=== PATIENT | male | born 1965 | race Caucasian/White ===

== ENCOUNTER 2020-06-19 01:23 | Observation (INO) | payer OTHER ==
[~2020-06-19] VITALS: Ht 177.8 cm; Wt 92.5 kg
[2020-06-19 01:31] VITALS: Ht 177.8 cm; Wt 92.5 kg
--- NOTE | 2020-06-19 01:34 | NUR ---
PT BIB [facility] WITH [facility]. PER MELT SUPERINTENDANT, PT CALLED 911 WITH REPORTS OF HAVING RADIATING CHEST PAIN. MELT SUPERINTENDANT STATES PT HAS HISTORY OF SENT PLACEMENT AND WAS SEEN LAST MONTH FOR "ETOH OD". PER MELT SUPERINTENDANT, PT WAS FOUND DRINKING MIKES HARD LEOMONADE ON ARRIVAL, AFTER EVALUATION WAS ADMINISTERED ASA AND NITRO. PT IS AWAKE A/O X4 SPEAKING CLEAR FULL SENTENCES. NO ACUTE DISTRESS NOTED. BREATHING EVEN AND UNLABORED. PT PLACED ON CM AND O2 MONITOR. SAFETY MEASURES IN PLACE. AWAITING MD NERI FOR MSE, WILL CONTINUE TO MONITOR.
--- NOTE | 2020-06-19 01:36 | NUR ---
MD NERI AT BEDSIDE FOR MSE. URSULA EMT AT [facility] FOR EKG. WILL CONTINUE TO MONITOR.
[2020-06-19 02:24] LABS: CALCIUM 7.9 mg/dL (8.5-10.1); CARBON DIOXIDE 26.7 mmol/L (21-32); CHLORIDE SERUM 102 mmol/L (98-107); CREATININE SERUM 0.7 mg/dL (0.7-1.3); GFR1 > 60 mL/min; GLUCOSE SERUM 104 mg/dL (74-106); POTASSIUM SERUM 3.7 mmol/L (3.5-5.1); SODIUM SERUM 138 mmol/L (136-145)
[2020-06-19 02:29] LABS: ALBUMIN 3.4 g/dL (3.4-5.0); ALKALINE PHOSPHATASE 56 U/L (46-116); ALT/SGPT 56 U/L (16-63); AST/SGOT 34 U/L (15-37); BILIRUBIN TOTAL 0.42 mg/dL (0.20-1.00); TOTAL PROTEIN, SERUM 6.7 g/dL (6.4-8.2)
[2020-06-19 02:34] LABS: BASOPHIL % 0.9 % (0-2); PLATELET COUNT 233 x10^3mcL (130-400); RED CELL DISTRIBUTION WIDTH 16.9 % (11.5-14.5)
--- NOTE | 2020-06-19 03:20 | NUR ---
PT REFUSED FENTANYL ORDERED BY MD NERI, MD NERI MADE AWARE. WASTED MEDICATION IN MED ROOM IN APPROPRIATE MED WASTE CONTAINER WITH MYSELF AND RAJESH GRANT.
--- NOTE | 2020-06-19 03:28 | NUR ---
MD NERI AT BEDSIDE DISCUSSING RESULTS AND POC WITH PT AT THIS TIME.
--- NOTE | 2020-06-19 03:52 | NUR ---
PT AWAKE IN GURNEY, SPEAKING CLEAR FULL SENTENCES. PT A/O X4, ON PHONE. NO ACUTE DISTRESS NOTED. BREATHING EVEN AND UNLABORED. CM AND O2 MONITOR IN PLACE. PT DENIES PAIN AT THIS TIME. SAFETY MEASURES IN PLACE. CALL LIGHT WITHIN REACH. WILL CONTINUE TO MONITOR.
--- NOTE | 2020-06-19 04:10 | NUR ---
PT NOTED WITH CM OFF. ENTERED ROOM AND INFORMED PT I NEEDED TO LIFT GOWN UP TO REINFORCE LEADS. PT STATED "WHY DO YOU NEED TO LIFT THAT, ARE YOU CHECKING FOR ABDOMINAL PAIN?" TO WHICH I RE-INFORMED HIM THAT THE LEADS TO HIS CM WERE OFF AND I NEEDED TO REINFORCE THEM AND CHECK THEM. PT THEN STARTED TO BUNCH UP HIS GOWN NEAR HIS LEFT LOWER ABD AND SAID "DONT LIFT THIS, DONT LOOK HERE". I ASKED HIM WHY AND HE SAID "DONT WORRY, DONT LIFT IT". I LOOKED TO HIS LEFT LOWER ABD AND NOTED A CLEAR BOTTLE STICKING OUT OF HIS PANTS. I ASKED HIM WHAT IT WAS TO WHICH HE STATED "DONT WORRY, YOU DIDNT SEE ANYTHING." I INFORMED HIM THAT ALCOHOL WAS NOT ALLOWED IN FACILITY. PT STATED "I DONT HAVE ANYTHING, I DONT KNOW WHAT YOURE TALKING ABOUT". I ASKED HIM AGAIN NICELY TO HAND BOTTLE OVER, PT STATED " I DONT HAVE ANYTHING". CHARGE NURSE INFORMED AND SECURITY CALLED.
--- NOTE | 2020-06-19 04:19 | NUR ---
MYSELF AND RAJESH GRANT AT BEDSIDE AND ASKED PT TO HAND OVER BOTTLE SINCE HE WAS BEING ADMITTED, INFORMED PT THAT SECURITY WOULD HOLD IT UNTIL HE IS DISHCARGED. PT THEN ASKED US TO LEAVE ROOM SO HE COULD GET IT, PT THEN CALLED US BACK INTO THE ROOM AND HANDED OVER BOTTLE OF VODKA. BOTTLE OF VODKA HANDED OVER TO SECURITY WITH PERSONAL LABEL ATTATCHED TO IT.
--- NOTE | 2020-06-19 04:37 | NUR ---
UPON GATHERING BELONGINGS, PT NOTED WITH POCKET BLADE. SECURITY CALLED. POCKET BLADE LABELED WITH PT INFORMATION AND HANDED OVER TO SECURITY. PT MADE AWARE AND VERBALIZED UNDERSTANDING. SECURITY EXPLAINED TO PT THAT UPON DISCHARGE, HE IS TO STOP BY OFFICE TO AGR[employer] SYSTEMS SPECIALIST PERSONAL BELONGINGS. PT AGREED AND VEBRALIZED UNDERSTANDING.
[2020-06-19 04:48] LABS: CHOLESTEROL/HDL RATIO 1.6
--- NOTE | 2020-06-19 04:50 | NUR ---
REPORT CALLED TO CAROLINA GRANT AT EXT [phone]
[2020-06-19 04:53] LABS: AMPHETAMINE QUAL UR POSITIVE (See below)
--- NOTE | 2020-06-19 05:00 | NUR ---
RECEIEVED PT FROM ED VIA BED, PT CAME IN DUE TO CHEST PAIN. PT STATES PAIN IS 3/10 AT THIS TIME. DESCRIBES PAIN ACHING. STATES PAIN IS TOLERABLE AT THIS TIME. TELE#3 [address] SR. PALPABLE PULSES TO ALL EXTREMETIES. NO EDEMA NOTED. LUNG SOUNDS CTA, BREATHING EVEN AND UNLABORED ON RA. NO SOB NOTED. ABD SOFT AND NONDISTENDED. ACTIVE BS X4 QUAD. DENIES N/V/D. VOIDS FREELY, BRP. PT HAS SWELLIING AND BRUISING TO LEFT EYE. ORIENTED PT TO ROOM. CALL LIGHT WITHIN REACH. WILL CONT TO MONITOR.
--- NOTE | 2020-06-19 05:00 | NUR ---
PT PLACED ON TRANSPORT CM, PT AWAKE A/O X4 AND NO ACUTE DISTRESS NOTED. BREATHING EVEN AND UNLABORED. PT TRASNSPORTED VIA RNEY WITH MYSELF, RAJESH RN, AND URSULA EMT TO ROOM 255-B. PT AMBULATED FROM GURNEY ONTO BED WITH STEADY GAIT. CAROLINA GRANT AT BEDSIDE TO ASSUME CARE.
[2020-06-19 05:23] VITALS: BP 120/84
--- NOTE | 2020-06-19 07:30 | NUR ---
RECEIVED PT IN BED ASLEEP AT THE TIME, EASILY AROUSABLE. ON TELE 3, NSR. DENIES CHEST PAIN/PRESSURE OR DISCOMFORT AT THIS TIME. ON RA, NO ACUTE RESPIRATORY DISTRESS. IV TO RFA SALINE LOCK. ALL NEEDS ATTENDED TO. CALL LIGHT WITHIN REACH. BED IN LOWEST POSITION. WILL CONTINUE TO MONITOR.
--- NOTE | 2020-06-19 09:35 | NUR ---
PATIENT WITH SCHEDULED LOVENOX, OFFERED/REFUSED X3 PT STATED "I DONT NEED IT", EXPLAINED RISKS AND BENEFITS, STILL STRONGLY REFUSED. PT VERBALIZED POSSIBLE SIGNING AGAINST MEDICAL ADVICE, PT STATED "I DONT THINK I NEED TO BE HERE". PAGED FOR [facility], PER ANSWERING SERVICE IS [facility], AWAITING FOR CALL BACK. PT IS AAOX4 ABLE TO MAKE DECISIONS. CALL LIGHT WITHIN REACH. WILL CONTINUE TO MONITOR.
--- NOTE | 2020-06-19 10:10 | NUR ---
NO CALL BACK AT THIS TIME FROM . PT REQUESTED TO SIGN AMA FORM WITHOUT BEING SEEN BY PHYSICIAN. EXPLAINED SIGNING AMA, PT VERBALIZED UNDERSTANDING AND SIGNED OUT. D/C IV SITE FROM [facility]. D/C FROM TELE 3. DENIES CHEST PAIN OR PRESSURE AT THIS TIME. DENIES DIZZINESS. V/S WITHIN RANGE. DENIES PAIN OR SOB. UPON ASSISTING PATIENT TO LOBBY, IN UNIT. MADE AWARE OF PATIENT'S AMA REQUEST. ALL BELONGINGS KEPTS BY PATIENT. ASSISTED TO LOBBY.
== END 2020-06-19 10:12 | disposition left against medical advice (07) ==
LOC: ED 01:23 → DU 03:54 → EDBEDREQ 03:59 → DU 04:55
PROVIDERS: Emergency Medicine; ADMIT Hospitalist; ATTEND Hospitalist
DX: R07.89 Other chest pain (principal); F10.129 Alcohol abuse with intoxication, unspecified; S00.12XA Contusion of left eyelid and periocular area, initial encounter; X58.XXXA Exposure to other specified factors, initial encounter; Y92.89 Other specified places as the place of occurrence of the external cause; Y93.89 Activity, other specified; Y99.8 Other external cause status
CPT/HCPCS: 83880; G0378; G0480; J1650; J2405; J3010; Q0092

== ENCOUNTER 2020-06-19 12:54 | Emergency (ER) | payer OTHER ==
[~2020-06-19] VITALS: Ht 177.8 cm; Wt 86.2 kg
[2020-06-19 13:00] VITALS: BP 142/102; Ht 177.8 cm; Wt 86.2 kg
== END 2020-06-19 13:26 | disposition other institution (70) ==
LOC: ED 12:54
DX: Z02.89 Encounter for other administrative examinations (principal)